=== PATIENT | female | born 1960 | race Caucasian/White ===

== ENCOUNTER 2017-05-07 07:12 | Day surgery (SDC) | payer MEDICARE, MEDICAID ==
[2017-05-07] MEDS ORDERED: Lactated Ringers 1,000 ML IV SCH (07:30)
[2017-05-07] MEDS ORDERED: Midazolam 1 MG/ML 2 ML SDV ONE (08:02)
[2017-05-07] MEDS ORDERED: fentaNYL 100 MCG/2 ML SDV ONE (08:02)
[2017-05-07] MEDS ORDERED: Propofol 200 MG/20 ML SDV ONE ×2 (08:02→08:35)
--- NOTE | 2017-05-07 11:08 | OR ---
DATE OF PROCEDURE: 05/07/2017 PREOPERATIVE DIAGNOSIS: Gastroesophageal reflux disease, colon cancer screening. POSTOPERATIVE DIAGNOSES: Gastroesophageal reflux disease, gastric polyps consistent with fundic gland polyps. PROCEDURE PERFORMED: Esophagogastroduodenoscopy with biopsy of GE junction and biopsy resection of gastric polyps, colonoscopy to the cecum. SURGEON: Fahad Arnold MD. ANESTHESIA: IV anesthesia with monitored anesthesia care. INDICATION: This 56-year-old white female is referred for upper and lower endoscopies. Indication for upper endoscopy is gastroesophageal reflux disease. She is on a proton pump inhibitor. Indication for colonoscopy is colon cancer screening. She has never had a colonoscopic exam. I counseled her for upper and lower endoscopies with possible biopsy and/or polypectomy including the risks and alternatives, and she gave her informed consent to proceed. DESCRIPTION OF PROCEDURE: The patient was placed in the left lateral decubitus position. IV anesthesia was administered by the Anesthesia Service. Time-out was held. The flexible video Olympus upper endoscope was passed through her mouth, down her esophagus, and into her stomach. The scope was easily passed through the pylorus, into the duodenum , reaching its third portion. The scope was then slowly withdrawn, examining the mucosa throughout. The duodenal mucosa appeared unremarkable. The scope was brought up through the pylorus. The antrum appeared unremarkable. The scope was retroflexed. We saw several polyps. These had the appearance of fundic gland polyps. We removed several of the larger ones. The scope was then brought up through the GE junction. Here, the Z-line was not straight , and there were islands of gastric mucosa proximally up in the esophagus, consistent with gastroesophageal reflux disease. We obtained multiple, totalling six, biopsies of the gastroesophageal junction. The scope was then brought proximal through the remainder of the esophagus, which otherwise appeared unremarkable and was removed. Next, a rectal exam was performed, which was unremarkable. The flexible video Olympus colonoscope was introduced through her anus, up her rectum, and out her colon all the way to the cecum. Once the cecum was reached, the scope was slowly withdrawn, examining the mucosa throughout. No mucosal abnormalities were noted. The scope was retroflexed in the rectum with the distal rectum appearing unremarkable. The scope was straightened and removed. She tolerated the procedure well. Fahad Arnold MD /[id number] MTDD
== END 2017-05-07 10:16 | disposition home or self-care (01) ==
LOC: JP.SDS 07:12
PROVIDERS: ATTEND Surgery
DX: Z12.11 Encounter for screening for malignant neoplasm of colon (principal); K31.7 Polyp of stomach and duodenum; K29.50 Unspecified chronic gastritis without bleeding; K21.0 Gastro-esophageal reflux disease with esophagitis; J45.909 Unspecified asthma, uncomplicated; F41.9 Anxiety disorder, unspecified; F32.9 Major depressive disorder, single episode, unspecified; Z88.0 Allergy status to penicillin; Z88.1 Allergy status to other antibiotic agents; Z88.2 Allergy status to sulfonamides; F17.210 Nicotine dependence, cigarettes, uncomplicated; Z98.890 Other specified postprocedural states
CPT/HCPCS: 43239; 88305; G0121; J2250; J2704; J3010; J7120

== ENCOUNTER 2017-08-22 00:14 | Emergency (ER) | payer MEDICARE, MEDICAID ==
--- NOTE | 2017-08-22 00:49 | EDM.PDOC ---
ED HPI GENERAL MEDICAL PROBLEM - General Chief Complaint: General Stated Complaint: L FLANK PAIN Time Seen by Provider: 08/22/17 00:38 Source of Information: Reports: Patient, RN Notes Reviewed History Limitations: Reports: No Limitations - History of Present Illness INITIAL COMMENTS - FREE TEXT/NARRATIVE: 56-year-old female presents emergency department today complaint of chest pain only when she takes a deep breath it is predominantly on the left side underneath her left breast pain is been ongoing for an hour she has not taken anything for the pain and declines any pain medication at this time. She states she has had this pain in the past however it is not last this long, positive tobacco use, negative heart history, dyslipidemia hypertension she is not diaphoretic no nausea Left Thoracic Pain Score (Numeric/FACES): 6 - Related Data Allergies Allergy/AdvReac Type Severity Reaction Status Date / Time erythromycin base Allergy Cannot Verified 05/05/17 09:01 Remember paroxetine [From Paxil] Allergy Cannot Verified 05/05/17 09:01 Remember Penicillins Allergy Rash Verified 05/05/17 09:01 Sulfa (Sulfonamide Allergy Cannot Verified 05/05/17 09:01 Antibiotics) Remember Home Meds: Home Meds Atenolol [Atenolol] 12.5 mg PO DAILY 05/05/17 [History] ClonazePAM [KlonoPIN] 0.5 mg PO BID 05/05/17 [History] Montelukast [Singulair] 10 mg PO ONETIME 05/05/17 [History] Nicotine Polacrilex [Commit] 2 mg CHEW Q1H PRN 05/05/17 [History] Budesonide [Pulmicort Flexhaler] 2 puff IH BID 08/22/17 [History] Famotidine 40 mg PO BID 08/22/17 [History] Past Medical History HEENT History: Reports: Sinusitis Cardiovascular History: Reports: Other (See Below) Other Cardiovascular History: history of mitral valve prolapse Respiratory History: Reports: Other (See Below) Other Respiratory History: allergy induced asthma Gastrointestinal History: Reports: GERD 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: Musculoskeletal History: Reports: Arthritis, Neck Pain, Chronic Psychiatric History: Reports: Anxiety, Panic Attack Oncologic (Cancer) History: Reports: Breast, Other (See Below) Other Oncologic History: history stage 1 breast cancer - Infectious Disease History Infectious Disease History: Reports: Chicken Pox, Mumps - Past Surgical History Head Surgeries/Procedures: Reports: None HEENT Surgical History: Reports: None Cardiovascular Surgical History: Reports: None Respiratory Surgical History: Reports: None GI Surgical History: Reports: None Female Surgical History: Reports: Breast Biopsy Neurological Surgical History: Reports: Other (See Below) Other Neurological Surgeries/Procedures: spondylolisthesis Musculoskeletal Surgical History: Reports: Other (See Below) Other Musculoskeletal Surgeries/Procedures:: cyst bilateral wrists removed Oncologic Surgical History: Reports: Lumpectomy Dermatological Surgical History: Reports: None Social & Family History - Family History Family Medical History: Noncontributory - Tobacco Use Smoking Status *Q: Current Every Day Smoker Years of Tobacco use: 35 Packs/Tins Daily: 1 Used Tobacco, but Quit: No - Caffeine Use Caffeine Use: Reports: Soda - Alcohol Use Days Per Week of Alcohol Use: 0 - Recreational Drug Use Recreational Drug Use: No ED ROS GENERAL - Review of Systems Review Of Systems: See Below Constitutional: Reports: No Symptoms HEENT: Reports: No Symptoms Respiratory: Reports: Other (Difficulty with a deep breath) Cardiovascular: Reports: Chest Pain, Palpitations GI/Abdominal: Reports: No Symptoms : Reports: No Symptoms Musculoskeletal: Reports: No Symptoms Skin: Reports: No Symptoms Neurological: Reports: No Symptoms Psychiatric: Reports: No Symptoms ED EXAM, GENERAL - Physical Exam Exam: See Below Free Text/Narrative:: General: Female, not in any distress, alert and oriented x3 HEENT: head is atraumatic normocephalic, eyes pupils equal round reactive to light, sclera clear no conjunctivitis appreciated. Ears tympanic membranes clear and lomax landmarks and light reflex are present bilaterally canals are clear. Nose no septal deviation, nares are clear, no blood present. Mouth mucosa is moist and pink no erythema or exudate noted in soft palate, tongue is midline uvula is midline, dentition is intact. Neck: Supple no thyromegaly no tracheal deviation. Nodes: Cervical nodes subclavicular nodes nontender no palpable lymphadenopathy noted. Lungs: clear to auscultation bilaterally with symmetrical respirations, no adventitious noise appreciated. CV: Regular rate and rhythm S1 and S2 appreciated no murmurs rubs or gallops noted. Abdomen: Soft, nontender, no palpable masses or organomegaly appreciated, no distention no guarding bowel sounds are present . Neuro: Cranial nerves II through XII grossly intact Skin: Warm and dry, intact Extremities: No lower extremity edema appreciated, Course - Vital Signs Last Recorded V/S: Last Vital Signs Temp 96.2 F 08/22/17 00:29 Pulse 69 08/22/17 05:36 Resp 11 L 08/22/17 05:36 BP 111/61 08/22/17 05:36 Pulse Ox 100 08/22/17 02:21 - Orders/Labs/Meds Orders: Active Orders 24 hr Category Date Time Status Cardiac Monitoring [RC] .As Directed Care 08/22/17 00:45 Active EKG Documentation Completion [RC] ASDIRECTED Care 08/22/17 00:45 Active Peripheral IV Care [RC] . DIRECTED Care 08/22/17 01:50 Active Chest 2V [CR] Stat Exams 08/22/17 00:45 Taken Sodium Chloride 0.9% [Normal Saline] 250 ml Med 08/22/17 02:10 Active IV ASDIRECTED Sodium Chloride 0.9% [Saline Flush] Med 08/22/17 01:49 Active 10 ml FLUSH ASDIRECTED PRN Peripheral IV Insertion Adult [OM.PC] Urgent Oth 08/22/17 01:49 Ordered EKG 12 Lead [EK] Stat Ther 08/22/17 00:45 Ordered Medication Orders Sodium Chloride (Normal Saline) 250 mls @ 50 mls/hr IV ASDIRECTED IVON Last Admin: 08/22/17 02:10 Dose: 50 mls/hr Sodium Chloride (Saline Flush) 10 ml FLUSH ASDIRECTED PRN PRN Reason: Keep Vein Open Labs: Laboratory Tests 08/22/17 08/22/17 08/22/17 Range/Units 00:59 00:59 00:59 WBC 7.6 (4.5-11.0) K/uL RBC 4.08 (3.30-5.50) M/uL Hgb 12.5 (12.0-15.0) g/dL Hct 37.8 (36.0-48.0) % MCV 93 (80-98) fL MCH 31 (27-31) pg MCHC 33 (32-36) % Plt Count 231 (150-400) K/uL Neut % (Auto) 56 (36-66) % Lymph % (Auto) 34 (24-44) % [place] % (Auto) 6 (2-6) % Eos % (Auto) 3 (2-4) % Baso % (Auto) 1 (0-1) % D-Dimer, Quantitative < 100 (0.0-400.0) ng/mL Sodium 140 (140-148) mmol/L Potassium 2.9 L* (3.6-5.2) mmol/L Chloride 104 (100-108) mmol/L Carbon Dioxide 27 (21-32) mmol/L Anion Gap 11.9 (5.0-14.0) mmol/L BUN 9 (7-18) mg/dL Creatinine 0.9 (0.6-1.0) mg/dL Est Cr Clr Drug Dosing 58.84 mL/min Estimated GFR (MDRD) > 60 (>60) Glucose 110 H (74-106) mg/dL Calcium 8.7 (8.5-10.1) mg/dL Total Bilirubin 0.3 (0.2-1.0) mg/dL AST 14 L (15-37) U/L ALT 19 (12-78) U/L Alkaline Phosphatase 77 (46-116) U/L CK-MB (CK-2) 0.3 (0-3.6) mg/mL Troponin I < 0.017 (0.000-0.056) ng/mL Total Protein 6.3 L (6.4-8.2) g/dL Albumin 3.7 (3.4-5.0) g/dL Globulin 2.6 (2.3-3.5) g/dL Albumin/Globulin Ratio 1.4 (1.2-2.2) Meds: Medications Generic Name Dose Route Start Last Admin Trade Name Freq PRN Reason Stop Dose Admin Sodium Chloride 250 mls @ 50 mls/hr 08/22/17 02:10 08/22/17 02:10 Normal Saline IV 50 mls/hr ASDIRECTED IVON Administration Sodium Chloride 10 ml 08/22/17 01:49 Saline Flush FLUSH ASDIRECTED PRN Keep Vein Open Discontinued Medications Generic Name Dose Route Start Last Admin Trade Name Freq PRN Reason Stop Dose Admin Potassium Chloride 20 meq/ 100 mls @ 50 mls/hr 08/22/17 01:49 08/22/17 02:08 Premix IV 08/22/17 03:48 50 mls/hr ONETIME ONE Administration Lidocaine HCl 2 ml 02/23/18 01:58 08/22/17 02:09 Xylocaine-Mpf 1% INJECT 08/22/17 01:59 2 ml ONETIME ONE Administration Potassium Chloride 40 meq 08/22/17 01:49 08/22/17 02:08 Klor-Con M20 PO 08/22/17 01:50 40 meq ONETIME ONE Administration Departure - Departure Time of Disposition: 05:55 Disposition: Home, Self-Care 01 Condition: Good Clinical Impression: Hypokalemia, Atypical chest pain - Discharge Information Referrals: Stefano Perez BUSINESS INTELLIGENCE ANALYST [Primary Care Provider] - Forms: ED Department Discharge Additional Instructions: Please follow-up with your primary care in the next 3-5 days for reevaluation, recheck potassium at that time, call return to the emergency department worsening of symptoms - My Orders Last 24 Hours: My Active Orders 08/22/17 00:45 Cardiac Monitoring [RC] .As Directed EKG Documentation Completion [RC] ASDIRECTED Chest 2V [CR] Stat EKG 12 Lead [EK] Stat 08/22/17 01:49 Sodium Chloride 0.9% [Saline Flush] 10 ml FLUSH ASDIRECTED PRN Peripheral IV Insertion Adult [OM.PC] Urgent 08/22/17 01:50 Peripheral IV Care [RC] . DIRECTED 08/22/17 02:10 Sodium Chloride 0.9% [Normal Saline] 250 ml IV ASDIRECTED - Assessment/Plan Last 24 Hours: My Active Orders 08/22/17 00:45 Cardiac Monitoring [RC] .As Directed EKG Documentation Completion [RC] ASDIRECTED Chest 2V [CR] Stat EKG 12 Lead [EK] Stat 08/22/17 01:49 Sodium Chloride 0.9% [Saline Flush] 10 ml FLUSH ASDIRECTED PRN Peripheral IV Insertion Adult [OM.PC] Urgent 08/22/17 01:50 Peripheral IV Care [RC] . DIRECTED 08/22/17 02:10 Sodium Chloride 0.9% [Normal Saline] 250 ml IV ASDIRECTED Plan: Assessment Acuity = acute Site and laterality = atypical chest pain complicated patient with known history of anxiety Etiology = unclear etiology Manifestations = none Location of injury = Home Lab values = CBC, CMP unremarkable except for potassium low at 2.9 consistent with hypokalemia, troponin and CK-MB negative, chest x-ray I did review films myself I cannot appreciate any acute process, the official read from radiology is pending, EKG demonstrates normal sinus rhythm there is no atrial enlargement there is no ventricular enlargement there is no axis deviation no T wave inversions I don't appreciate any ST depressions or elevations no Q waves noted good R wave progression Plan I did review lab work EKG results with her she did receive 40 mEq of potassium orally and 20 mEq of potassium IV, plan is discharge home follow-up with primary care the next 3-5 days for reevaluation recheck potassium at that time This note was dictated using [employer] voice recognition software please call with any questions on syntax or javier.
[2017-08-22] MEDS ORDERED: Potassium Chloride 20 MEQ Tab.ER PO ONE (01:49)
[2017-08-22] MEDS ORDERED: Potassium Chloride 20 MEQ in Premix Bag 1 BAG IV ONE (01:49)
[2017-08-22] MEDS ORDERED: Sodium Chloride 0.9% 10 ML Syringe FLUSH PRN (01:49)
[2017-08-22] MEDS ORDERED: Sodium Chloride 0.9% 250 ML IV SCH (02:10)
--- NOTE | 2017-08-22 09:23 | CR ---
Chest 2V FINDINGS: The heart and vascular structures are normal in appearance. No infiltrates or effusions are demonstrated. The skeletal structures are unremarkable. IMPRESSION: Negative exam.
== END 2017-08-22 06:41 | disposition home or self-care (01) ==
LOC: JP.ED 00:14
DX: E87.6 Hypokalemia (principal); R07.89 Other chest pain; F17.210 Nicotine dependence, cigarettes, uncomplicated; Z88.1 Allergy status to other antibiotic agents; Z88.0 Allergy status to penicillin; Z88.2 Allergy status to sulfonamides; Z88.8 Allergy status to other drugs, medicaments and biological substances; Z79.899 Other long term (current) drug therapy
CPT/HCPCS: 36415; 71046; 80053; 82553; 84484; 85025; 85379; 93005; 96360; 96361; 99284; A9270; J3480; J7050

== ENCOUNTER 2017-09-12 10:33 | Emergency (ER) | payer MEDICARE, MEDICAID ==
--- NOTE | 2017-09-12 12:07 | EDM.PDOC ---
ED HPI GENERAL MEDICAL PROBLEM - General Chief Complaint: Cardiovascular Problem Stated Complaint: HEART SKIPPING BEATS/FAINT FEELING Time Seen by Provider: 09/12/17 11:00 Source of Information: Reports: Patient, Family History Limitations: Reports: No Limitations - History of Present Illness INITIAL COMMENTS - FREE TEXT/NARRATIVE: 48-year-old female with chronic anxiety, and fibromyalgia presents with increased palpitations especially last evening when she was trying to get to sleep. No chest pain or shortness of breath. She has had a chronic palpitations problem and has been worked up and told she has PVCs. They were just worse last night and she felt she should get checked today. She's also had a recent problem with low potassium. Severity: Mild Associated Symptoms: Reports: Other (Had a brief episode of lightheadedness this morning during a bowel movement). Denies: Chest Pain, Nausea/Vomiting, Shortness of Breath, Weakness - Related Data Allergies Allergy/AdvReac Type Severity Reaction Status Date / Time erythromycin base Allergy Cannot Verified 09/12/17 10:54 Remember paroxetine [From Paxil] Allergy Cannot Verified 09/12/17 10:54 Remember Penicillins Allergy Rash Verified 09/12/17 10:54 Sulfa (Sulfonamide Allergy Cannot Verified 09/12/17 10:54 Antibiotics) Remember Home Meds: Home Meds Atenolol [Atenolol] 12.5 mg PO DAILY 05/05/17 [History] ClonazePAM [KlonoPIN] 0.5 mg PO BID 05/05/17 [History] Montelukast [Singulair] 10 mg PO ONETIME 05/05/17 [History] Budesonide [Pulmicort Flexhaler] 2 puff IH BID 08/22/17 [History] Omeprazole [Omeprazole] 1 tab PO DAILY 09/12/17 [History] Past Medical History HEENT History: Reports: Sinusitis Cardiovascular History: Reports: Other (See Below) Other Cardiovascular History: history of mitral valve prolapse Respiratory History: Reports: Other (See Below) Other Respiratory History: allergy induced asthma Gastrointestinal History: Reports: GERD Genitourinary History: Reports: None 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: Musculoskeletal History: Reports: Arthritis, Neck Pain, Chronic Neurological History: Reports: None Psychiatric History: Reports: Anxiety, Panic Attack Oncologic (Cancer) History: Reports: Breast, Other (See Below) Other Oncologic History: history stage 1 breast cancer - Infectious Disease History Infectious Disease History: Reports: Chicken Pox, Mumps - Past Surgical History Head Surgeries/Procedures: Reports: None HEENT Surgical History: Reports: None Cardiovascular Surgical History: Reports: None Respiratory Surgical History: Reports: None GI Surgical History: Reports: None Female Surgical History: Reports: Breast Biopsy Neurological Surgical History: Reports: Other (See Below) Other Neurological Surgeries/Procedures: spondylolisthesis Musculoskeletal Surgical History: Reports: Other (See Below) Other Musculoskeletal Surgeries/Procedures:: cyst bilateral wrists removed Oncologic Surgical History: Reports: Lumpectomy Dermatological Surgical History: Reports: None Social & Family History - Family History Family Medical History: Noncontributory - Tobacco Use Smoking Status *Q: Current Every Day Smoker Years of Tobacco use: 35 Packs/Tins Daily: 1.5 Used Tobacco, but Quit: No - Caffeine Use Caffeine Use: Reports: Soda - Alcohol Use Days Per Week of Alcohol Use: 0 - Recreational Drug Use Recreational Drug Use: No ED ROS GENERAL - Review of Systems Review Of Systems: See Below Constitutional: Denies: Fever, Chills HEENT: Reports: No Symptoms Respiratory: Denies: Shortness of Breath, Cough Cardiovascular: Reports: Palpitations. Denies: Chest Pain GI/Abdominal: Reports: Constipation. Denies: Abdominal Pain, Nausea, Vomiting Neurological: Reports: Other (Had a near syncopal episode this morning) Psychiatric: Reports: Anxiety ED EXAM, GENERAL - Physical Exam Exam: See Below Exam Limited By: No Limitations General Appearance: Alert, No Apparent Distress, Anxious Eye Exam: Bilateral Eye: Normal Inspection Head: Atraumatic Respiratory/Chest: No Respiratory Distress, Lungs Clear Cardiovascular: Regular Rate, Rhythm, Extra Beats (Fairly frequent ectopics, coke oven mason shows PVCs) GI/Abdominal: Soft, Non-Tender Extremities: Normal Inspection. No: Pedal Edema Neurological: Alert, Oriented Psychiatric: Anxious Skin Exam: Warm, Dry Course - Vital Signs Last Recorded V/S: Last Vital Signs Temp 98.1 F 09/12/17 11:02 Pulse 61 09/12/17 11:02 Resp 10 L 09/12/17 11:02 BP 135/68 09/12/17 11:02 Pulse Ox 100 09/12/17 11:02 - Orders/Labs/Meds Labs: Laboratory Tests 09/12/17 09/12/17 09/12/17 Range/Units 11:38 11:38 11:38 WBC 9.2 (4.5-11.0) K/uL RBC 4.54 (3.30-5.50) M/uL Hgb 14.1 (12.0-15.0) g/dL Hct 41.9 (36.0-48.0) % MCV 92 (80-98) fL MCH 31 (27-31) pg MCHC 34 (32-36) % Plt Count 251 (150-400) K/uL Neut % (Auto) 75 H (36-66) % Lymph % (Auto) 17 L (24-44) % [place] % (Auto) 8 H (2-6) % Eos % (Auto) 0 L (2-4) % Baso % (Auto) 0 (0-1) % Sodium 138 L (140-148) mmol/L Potassium 3.7 (3.6-5.2) mmol/L Chloride 100 (100-108) mmol/L Carbon Dioxide 31 (21-32) mmol/L Anion Gap 10.7 (5.0-14.0) mmol/L BUN 11 (7-18) mg/dL Creatinine 0.8 (0.6-1.0) mg/dL Est Cr Clr Drug Dosing 66.19 mL/min Estimated GFR (MDRD) > 60 (>60) Glucose 129 H (74-106) mg/dL Calcium 8.8 (8.5-10.1) mg/dL Troponin I < 0.017 (0.000-0.056) ng/mL - Re-Assessments/Exams Free Text/Narrative Re-Assessment/Exam: 09/12/17 12:07 CBC, BMP and troponin were obtained. Patient was kept on a coke oven mason and had no runs of V. tach, but PVCs were fairly prevalent. 09/12/17 12:16 Potassium was 3.7, troponin 0 and the rest of her labs are reassuring. She continued to have less and less PVCs while on the monitor and felt fine. No further treatment is necessary but she should get her potassium rechecked in another 1-2 weeks. She can return anytime if worsening. Departure - Departure Time of Disposition: 12:47 Disposition: Home, Self-Care 01 Condition: Good Clinical Impression: Palpitations Instructions: Palpitations, [id number] Referrals: Stefano Perez PIPE FITTER MAINTENANCE [Primary Care Provider] - Forms: ED Department Discharge Care Plan Goals: Continue your current medications, consider extra dosing of atenolol or clonazepam if needed as discussed. Consider also rechecking your potassium in 1- 2 weeks. Return anytime if worsening or concerns.
== END 2017-09-12 12:48 | disposition home or self-care (01) ==
LOC: JP.ED 10:33
DX: R00.2 Palpitations (principal); K21.9 Gastro-esophageal reflux disease without esophagitis; F17.210 Nicotine dependence, cigarettes, uncomplicated; Z88.1 Allergy status to other antibiotic agents; Z88.2 Allergy status to sulfonamides; Z88.0 Allergy status to penicillin; Z88.8 Allergy status to other drugs, medicaments and biological substances
CPT/HCPCS: 36415; 80048; 84484; 85025; 99284

== ENCOUNTER 2021-11-16 20:01 | Emergency (ER) | payer MEDICARE, MEDICAID | END 2021-11-16 22:32 | disposition home or self-care (01) | LOC: JP.ED 20:01 | DX: N30.01 Acute cystitis with hematuria (principal); K21.9 Gastro-esophageal reflux disease without esophagitis; Z88.0 Allergy status to penicillin; Z88.1 Allergy status to other antibiotic agents; Z88.8 Allergy status to other drugs, medicaments and biological substances; Z88.2 Allergy status to sulfonamides; Z79.899 Other long term (current) drug therapy; Z72.0 Tobacco use; Z20.822 Contact with and (suspected) exposure to COVID-19 | CPT/HCPCS: 81001; 99282; 99284; U0002 ==

== ENCOUNTER 2022-03-06 10:16 | Emergency (ER) | payer MEDICARE, MEDICAID | END 2022-03-06 11:24 | disposition home or self-care (01) | LOC: JP.ED 10:16 | DX: R00.2 Palpitations (principal); F17.210 Nicotine dependence, cigarettes, uncomplicated; Z88.1 Allergy status to other antibiotic agents; Z88.0 Allergy status to penicillin; Z88.8 Allergy status to other drugs, medicaments and biological substances; Z88.2 Allergy status to sulfonamides; Z79.899 Other long term (current) drug therapy | CPT/HCPCS: 99284 ==

== ENCOUNTER 2023-02-02 10:38 | Emergency (ER) | payer MEDICARE, MEDICAID | END 2023-02-02 13:10 | disposition home or self-care (01) | LOC: JP.ED 10:38 | DX: S81.831A Puncture wound without foreign body, right lower leg, initial encounter (principal); F17.210 Nicotine dependence, cigarettes, uncomplicated; Z88.0 Allergy status to penicillin; Z88.8 Allergy status to other drugs, medicaments and biological substances; Z88.1 Allergy status to other antibiotic agents; Z88.2 Allergy status to sulfonamides; W55.01XA Bitten by cat, initial encounter | CPT/HCPCS: 99283 ==

== ENCOUNTER 2023-02-07 02:36 | Emergency (ER) | payer MEDICARE, MEDICAID ==
[2023-02-07 03:34] LABS: BASOPHILS ABSOLUTE AUTO 0.05 K/uL (0.00-0.10); BASOPHILS PERCENT AUTO 0.8 % (0.1-1.3); EOSINOPHILS ABSOLUTE AUTO 0.24 K/uL (0.00-0.40); HEMATOCRIT 35.2 % (34.3-46.0); HEMOGLOBIN 12.1 g/dL (11.2-15.5); IMMATURE GRAN ABSOLUTE AUTO 0.02 K/uL (0.00-0.23); IMMATURE GRAN PERCENT AUTO 0.3 % (0.0-0.7); LYMPHOCYTES ABSOLUTE AUTO 1.48 K/uL (0.8-3.3); LYMPHOCYTES PERCENT AUTO 24.6 % (11.4-47.7); MEAN CORPUSCULAR HGB CONC 34.4 g/dL (31.6-35.5); MEAN CORPUSCULAR VOLUME 90.3 fL (81.4-99.0); MONOCYTES ABSOLUTE AUTO 0.49 K/uL (0.20-0.90); MONOCYTES PERCENT AUTO 8.2 % (3.3-12.6); NEUTROPHILS ABSOLUTE AUTO 3.73 K/uL (1.0-7.6); NEUTROPHILS PERCENT AUTO 62.1 % (40.0-78.1); PLATELET COUNT,PLT 234 K/uL (130-375)
[2023-02-07 03:48] LABS: ANION GAP 12.6 mmol/L (5.0-14.0); CREATININE 0.8 mg/dL (0.6-1.0); EST CRCL DRUG DOSING (CG) 61.35 mL/min; POTASSIUM,K 3.6 mmol/L (3.6-5.2)
== END 2023-02-07 04:29 | disposition home or self-care (01) ==
LOC: JP.ED 02:36
DX: F41.9 Anxiety disorder, unspecified (principal); K21.9 Gastro-esophageal reflux disease without esophagitis; F17.210 Nicotine dependence, cigarettes, uncomplicated; Z88.1 Allergy status to other antibiotic agents; Z88.0 Allergy status to penicillin; Z88.8 Allergy status to other drugs, medicaments and biological substances; Z88.2 Allergy status to sulfonamides; Z79.899 Other long term (current) drug therapy
CPT/HCPCS: 36415; 80048; 85025; 99283

== ENCOUNTER 2024-04-23 11:16 | Emergency (ER) | payer MEDICARE, MEDICAID ==
[2024-04-23] MEDS: Ketorolac 30 MG/ML SDV IVPUSH ONE (12:34)
[2024-04-23] MEDS ORDERED: Iopamidol 612 MG/ML 100 ML Bottle IV PRN (13:21)
[2024-04-23] MEDS ORDERED: Sodium Chloride 0.9% 10 ML Syringe FLUSH PRN (13:21)
[2024-04-23] MEDS ORDERED: Sodium Chloride 0.9% 60 ML IV ONE (13:21)
== END 2024-04-23 15:06 | disposition home or self-care (01) ==
LOC: JP.ED 11:16
DX: M54.41 Lumbago with sciatica, right side (principal); J44.89 Other specified chronic obstructive pulmonary disease; K21.9 Gastro-esophageal reflux disease without esophagitis; F17.210 Nicotine dependence, cigarettes, uncomplicated; Z85.3 Personal history of malignant neoplasm of breast; Z98.890 Other specified postprocedural states; Z88.0 Allergy status to penicillin; Z88.1 Allergy status to other antibiotic agents; Z88.2 Allergy status to sulfonamides; Z88.8 Allergy status to other drugs, medicaments and biological substances; Z79.52 Long term (current) use of systemic steroids; Z79.899 Other long term (current) drug therapy
CPT/HCPCS: 72131; 74176; 76377; 96374; 99283; J1885